=== PATIENT | male | born 1950 | race Caucasian/White ===

== ENCOUNTER → 2018-04-12 | Outpatient (CLI) | payer MEDICARE ==
[~2018-04-12] MED LIST: APAP650 PO; ASPIR-TRIN325 MG PO; ASPIRIN325 PO; COLACE100 MG PO; FISH OIL 1,0001 EAC5 PO; FLOMAX0.4 MG PO; HYDROCODONE-AP1 EAC6 PO; LISINOPRIL2.5 MG PO; LOPRESSOR PO; MAG-AL PLUS XS30 ML PO; MOBIC15 MG PO; NIASPAN PO; OMEPRAZOLE 20 M20 M1 PO; PLAVIX 75 MG TA75 MG PO; SIMVASTATIN40 MG PO; THERA-M CAPLET1 EACH PO; VITAMIN E400 UNIT PO; XANAX1 MG PO
== END ==
LOC: M.RAD 08:54
DX: K21.9 Gastro-esophageal reflux disease without esophagitis (principal); R13.10 Dysphagia, unspecified

== ENCOUNTER → 2018-05-18 | Day surgery (SDC) | payer MEDICARE ==
--- NOTE | ~2018-05-18 | PROC ---
[address] [address] PROCEDURE REPORT Name: YEVGENIY COPPOLA Room: [facility].#: [id number] Admission: 05/18/18 Attend Phys: Bro Angel MD Discharge: Date of : 48 Report #: [id number] THIS REPORT FOR: //name// For GI report, please see the Provation report in Perceptive 7 content. By: [address] [place], [place] [address]cal Records Staff [facility] /[facility]
[2018-05-18 08:31] LABS: HEMATOCRIT 44.4 % (42.0-52.0); MCH 30.7 pg (26.0-34.0); MCHC 33.9 g/dL (28.0-37.0); MCV 90.6 fL (80.0-100.0); MPV 7.8 fl. (7.2-11.1); RBC 4.91 mil/uL (4.50-6.00); RDW-CV 12.8 % (10.5-14.5); WBC 6.1 thou/uL (4.0-11.0)
[2018-05-18 08:36] LABS: CALCIUM 8.6 mg/dL (8.5-10.1); CREATININE 1.1 mg/dL (0.6-1.3); POTASSIUM 3.9 mmol/L (3.5-5.1)
[2018-05-18 08:46] LABS: ALBUMIN 3.7 g/dL (3.4-5.0); TOTAL BILIRUBIN 0.7 mg/dL (<0.1-1.0); TOTAL PROTEIN 6.7 g/dL (6.4-8.2)
--- NOTE | 2018-05-18 11:09 | EKG ---
[place] [address] ELECTROCARDIOGRAM REPORT Name: COPPOLAYEVGENIY Jordan MARCO Room: [facility].#: [id number] Admission: 05/18/18 Attend Phys: Bro Angel MD Discharge: Date of : 48 Report #: [id number] THIS REPORT FOR: //name// [facility] Test Date: 2018-05-18 Test Time: 08:10:06 Pat Name: YEVGENIY COPPOLA Department: Room: Gender: Recep: : 1950 Requested By: Bro Angel Order Number: [id number] Josee MD: Major Horn Measurements Intervals [place] Rate: 72 P: 46 GA: 182 QRS: 34 QRSD: 101 T: 4 QT: 403 QTc: 442 Interpretive Statements Sinus rhythm Abnormal R-wave progression, early transition No previous ECG available for comparison Electronically Signed On 05-18-2018 11:09:20 CDT by Major Horn [email or web address] <ELECTRONICALLY SIGNED> By: Major Horn MD, [facility] 05/18/18 1109 D: 09/809 9 Major Horn MD, FACC /EPI
== END | disposition home or self-care (01) ==
LOC: M.SUR 06:42
PROVIDERS: Internal Medicine Gastroenterology
DX: R13.19 Other dysphagia (principal); Z98.890 Other specified postprocedural states; Z79.891 Long term (current) use of opiate analgesic; Z79.899 Other long term (current) drug therapy

== ENCOUNTER → 2018-07-23 | Outpatient (CLI) | payer MEDICARE ==
[2018-07-23 12:01] LABS: CREATININE 1.1 mg/dL (0.6-1.3)
== END ==
LOC: M.LAB 07-18 11:39
PROVIDERS: Family Medicine
DX: K76.0 Fatty (change of) liver, not elsewhere classified (principal); R10.13 Epigastric pain; Z87.19 Personal history of other diseases of the digestive system

== ENCOUNTER → 2018-09-20 | Outpatient (CLI) | payer MEDICARE | LOC: M.ULTRA 07:01 → M.NUC 07:30 → M.ULTRA 07:30 | DX: K76.0 Fatty (change of) liver, not elsewhere classified (principal); R14.0 Abdominal distension (gaseous); R10.9 Unspecified abdominal pain ==

== ENCOUNTER 2020-07-18 23:14 | Emergency (ER) | payer MEDICARE ==
[~2020-07-18] VITALS: Ht 175.3 cm; Wt 93.0 kg
[2020-07-19 01:51] VITALS: BP 173/131
== END 2020-07-19 01:49 | disposition home or self-care (01) ==
LOC: M.ERS 23:14
DX: R04.0 Epistaxis (principal); Z98.890 Other specified postprocedural states; Z79.899 Other long term (current) drug therapy; Z88.4 Allergy status to anesthetic agent

== ENCOUNTER → 2021-01-26 | Outpatient (CLI) | payer MEDICARE ==
[~2021-01-26] MED LIST changes: +FLEXERIL PO; -HYDROCODONE-AP1 EAC6 PO; +LISINOPRIL10 MG PO; +NORCO 10-325 T1 EACH PO; +SUPER THERAVIT1 EACH PO; +VITAMIN D325 MC5 PO; +VOLTAREN GEL 1100 G1 TOP
== END ==
LOC: M.PC 09:32
PROVIDERS: ATTEND Anesthesiology Pain Medicine
DX: G89.29 Other chronic pain (principal); K21.9 Gastro-esophageal reflux disease without esophagitis; M48.062 Spinal stenosis, lumbar region with neurogenic claudication; F41.8 Other specified anxiety disorders; R97.20 Elevated prostate specific antigen [PSA]; R73.01 Impaired fasting glucose; I10 Essential (primary) hypertension; J32.9 Chronic sinusitis, unspecified; Z90.49 Acquired absence of other specified parts of digestive tract; Z68.28 Body mass index [BMI] 28.0-28.9, adult; Z79.891 Long term (current) use of opiate analgesic; Z79.899 Other long term (current) drug therapy

== ENCOUNTER → 2021-02-23 | Outpatient (CLI) | payer MEDICARE | LOC: M.PC 09:30 | PROVIDERS: ATTEND Anesthesiology Pain Medicine | DX: M48.061 Spinal stenosis, lumbar region without neurogenic claudication (principal); N40.0 Benign prostatic hyperplasia without lower urinary tract symptoms; K21.9 Gastro-esophageal reflux disease without esophagitis; I10 Essential (primary) hypertension; J32.9 Chronic sinusitis, unspecified; F41.9 Anxiety disorder, unspecified; F32.9 Major depressive disorder, single episode, unspecified ==

== ENCOUNTER → 2021-03-23 | Outpatient (CLI) | payer MEDICARE | LOC: M.PC 09:50 | PROVIDERS: ATTEND Anesthesiology Pain Medicine | DX: M48.062 Spinal stenosis, lumbar region with neurogenic claudication (principal); F41.9 Anxiety disorder, unspecified; M32.9 Systemic lupus erythematosus, unspecified; N40.0 Benign prostatic hyperplasia without lower urinary tract symptoms; K21.9 Gastro-esophageal reflux disease without esophagitis; I10 Essential (primary) hypertension; J32.9 Chronic sinusitis, unspecified; Z79.899 Other long term (current) drug therapy; Z79.891 Long term (current) use of opiate analgesic ==

== ENCOUNTER → 2021-04-20 | Outpatient (CLI) | payer MEDICARE | LOC: M.PC 09:55 | PROVIDERS: ATTEND Anesthesiology Pain Medicine | DX: M48.00 Spinal stenosis, site unspecified (principal); F41.9 Anxiety disorder, unspecified; M19.90 Unspecified osteoarthritis, unspecified site; F32.89 Other specified depressive episodes; R97.20 Elevated prostate specific antigen [PSA]; R73.01 Impaired fasting glucose; K21.9 Gastro-esophageal reflux disease without esophagitis; I10 Essential (primary) hypertension; J32.8 Other chronic sinusitis ==

== ENCOUNTER → 2021-05-18 | Outpatient (CLI) | payer MEDICARE | LOC: M.PC 10:12 | PROVIDERS: ATTEND Anesthesiology Pain Medicine | DX: G89.29 Other chronic pain (principal); M19.90 Unspecified osteoarthritis, unspecified site; M48.061 Spinal stenosis, lumbar region without neurogenic claudication; F32.89 Other specified depressive episodes; K21.9 Gastro-esophageal reflux disease without esophagitis; I10 Essential (primary) hypertension; J32.8 Other chronic sinusitis; R97.20 Elevated prostate specific antigen [PSA]; R73.9 Hyperglycemia, unspecified; Z90.49 Acquired absence of other specified parts of digestive tract; Z98.890 Other specified postprocedural states ==

== ENCOUNTER → 2021-06-15 | Outpatient (CLI) | payer MEDICARE | LOC: M.PC 10:24 | PROVIDERS: ATTEND Anesthesiology Pain Medicine | DX: M48.062 Spinal stenosis, lumbar region with neurogenic claudication (principal); F34.89 Other specified persistent mood disorders; R97.20 Elevated prostate specific antigen [PSA]; J21.9 Acute bronchiolitis, unspecified; M13.88 Other specified arthritis, other site; I10 Essential (primary) hypertension; J32.8 Other chronic sinusitis; R73.09 Other abnormal glucose; Z88.8 Allergy status to other drugs, medicaments and biological substances; Z79.899 Other long term (current) drug therapy ==

== ENCOUNTER → 2021-07-13 | Outpatient (CLI) | payer MEDICARE | LOC: M.PC 10:19 | PROVIDERS: ATTEND Anesthesiology Pain Medicine | DX: M48.062 Spinal stenosis, lumbar region with neurogenic claudication (principal); R97.20 Elevated prostate specific antigen [PSA]; R73.01 Impaired fasting glucose; K21.9 Gastro-esophageal reflux disease without esophagitis; I10 Essential (primary) hypertension; J32.8 Other chronic sinusitis; G47.62 Sleep related leg cramps; F41.8 Other specified anxiety disorders; Z90.49 Acquired absence of other specified parts of digestive tract; Z88.8 Allergy status to other drugs, medicaments and biological substances; Z79.899 Other long term (current) drug therapy ==

== ENCOUNTER → 2021-08-10 | Outpatient (CLI) | payer MEDICARE ==
[~2021-08-10] MED LIST changes: +CYMBALTA30 MG PO
== END ==
LOC: M.PC 10:00
PROVIDERS: ATTEND Anesthesiology Pain Medicine
DX: M48.062 Spinal stenosis, lumbar region with neurogenic claudication (principal); F41.9 Anxiety disorder, unspecified; F32.9 Major depressive disorder, single episode, unspecified; R97.20 Elevated prostate specific antigen [PSA]; K21.9 Gastro-esophageal reflux disease without esophagitis; R73.01 Impaired fasting glucose; I10 Essential (primary) hypertension; J32.9 Chronic sinusitis, unspecified; G47.62 Sleep related leg cramps

== ENCOUNTER → 2021-09-07 | Outpatient (CLI) | payer MEDICARE ==
[~2021-09-07] MED LIST changes: +NARCAN4 MG NARES
== END ==
LOC: M.PC 09:42
PROVIDERS: ATTEND Anesthesiology Pain Medicine
DX: M48.062 Spinal stenosis, lumbar region with neurogenic claudication (principal); K21.9 Gastro-esophageal reflux disease without esophagitis; I10 Essential (primary) hypertension; G47.62 Sleep related leg cramps; J32.9 Chronic sinusitis, unspecified; R97.20 Elevated prostate specific antigen [PSA]; R73.01 Impaired fasting glucose; F41.8 Other specified anxiety disorders; F34.89 Other specified persistent mood disorders; Z88.8 Allergy status to other drugs, medicaments and biological substances; Z79.899 Other long term (current) drug therapy

== ENCOUNTER → 2021-10-14 | Outpatient (CLI) | payer MEDICARE | LOC: M.PC 10-05 10:00 | PROVIDERS: ATTEND Anesthesiology Pain Medicine | DX: M48.062 Spinal stenosis, lumbar region with neurogenic claudication (principal); K21.9 Gastro-esophageal reflux disease without esophagitis; I10 Essential (primary) hypertension; J32.8 Other chronic sinusitis; R97.20 Elevated prostate specific antigen [PSA]; F41.9 Anxiety disorder, unspecified; Z90.49 Acquired absence of other specified parts of digestive tract; Z88.8 Allergy status to other drugs, medicaments and biological substances; Z79.899 Other long term (current) drug therapy ==